=== PATIENT | male | born 1945 | race Caucasian/White ===

== ENCOUNTER 2018-01-22 05:58 | Day surgery (SDC) | payer OTHER ==
--- OUTSIDE RECORDS SUMMARY | 2018-01-22 07:20 | XMS REPORT ---
:1945 Author Organization eClinicalWorks Care Team Providers Name Role Phone Asif Lawrence Provider Role Unavailable Allergies, Adverse Reactions, Alerts Substance Reaction Event Type N.K.D.A. Info Not Available Non Drug Allergy Problems Problem Type Condition Code Onset Dates Condition Status Problem Primary osteoarthritis of left knee M17.12 Active Problem Pain, joint, knee, left M25.562 Active Assessment Pain, joint, knee, left M25.562 Active Assessment Primary osteoarthritis of left knee M17.12 Active Medications Medication Code Code Instructions Start End Status Dosage System Date Date Levothyroxine [facility] 10109728010 112 MCG Oral Active TK 1 T PO Sodium QD Simvastatin [facility] 67359619177 40 MG Oral Active TK 1 T PO QD Citalopram [facility] 41539908064 20 MG Oral Active TK 1 T PO Hydrobromide QAM Hydrocodone-Aceta [facility] 86968608164 7.5-325 MG Oral Active (Schedule minophen II Drug) TAKE 1 TABLET BY MOUTH 3 TIMES DAILY MAY MAKE DROWSY Results No Known Results Summary Purpose eClinicalWorks Submission
--- OUTSIDE RECORDS SUMMARY | 2018-01-22 07:20 | XMS REPORT ---
:1945 Author Organization [employer]ClinicalWorks Care Team Providers Name Role Phone Asif Lawrence Provider Role Unavailable Allergies, Adverse Reactions, Alerts Substance Reaction Event Type N.K.D.A. Info Not Available Non Drug Allergy Problems Problem Type Condition Code Onset Dates Condition Status Problem Pain, joint, knee, left M25.562 Active Problem Primary osteoarthritis of left knee M17.12 Active Problem Left sided sciatica M54.32 Active Assessment Pain, joint, knee, left M25.562 Active Assessment Left sided sciatica M54.32 Active Assessment Primary osteoarthritis of left knee M17.12 Active Medications Medication Code Code Instructions Start End Status Dosage System Date Date Levothyroxine [facility] 97224044424 112 MCG Oral Active TK 1 T PO Sodium QD Simvastatin [facility] 60622601142 40 MG Oral Active TK 1 T PO QD Hydrocodone-Aceta [facility] 64879592295 7.5-325 MG Oral Active (Schedule minophen II Drug) TAKE 1 TABLET BY MOUTH 3 TIMES DAILY MAY MAKE DROWSY Citalopram [facility] 45192300855 20 MG Oral Active TK 1 T PO Hydrobromide QAM Results No Known Results Summary Purpose eClinicalWorks Submission
--- OUTSIDE RECORDS SUMMARY | 2018-01-22 07:20 | XMS REPORT ---
[...] Primary osteoarthritis of left knee M17.12 Active Assessment Pain, joint, knee, left M25.562 Active Medications Medication Code Code Instructions Start End Status Dosage System Date Date Levothyroxine [facility] 32007897394 112 MCG Oral Active TK 1 T PO Sodium QD Hydrocodone-Aceta [facility] 32619701250 7.5-325 MG Oral Active (Schedule minophen II Drug) TAKE 1 TABLET BY MOUTH 3 TIMES DAILY MAY MAKE DROWSY Citalopram [facility] 33997110329 20 MG Oral Active TK 1 T PO Hydrobromide QAM Simvastatin [place] 81071771390 40 MG Oral Active TK 1 T PO QD Results No Known Results Summary Purpose eClinicalWorks Submission
--- OUTSIDE RECORDS SUMMARY | 2018-01-22 07:20 | XMS REPORT ---
[...] Start End Status Dosage System Date Date Citalopram [facility] 32875176648 20 MG Oral Active TK 1 T PO Hydrobromide QAM Simvastatin ND 31435150717 40 MG Oral Active TK 1 T PO QD Hydrocodone-Aceta [facility] 19322666975 7.5-325 MG Oral Active (Schedule minophen II Drug) TAKE 1 TABLET BY MOUTH 3 TIMES DAILY MAY MAKE DROWSY Levothyroxine [facility] 83585763259 112 MCG Oral Active TK 1 T PO Sodium QD Results No Known Results Summary Purpose eClinicalWorks Submission
[2018-01-22 07:27] VITALS: BP 126/68; TEMP 97.9; O2SAT 99
[2018-01-22] MEDS ORDERED: Ringers Lactate 1,000 ML IV ONE (07:32)
--- OUTSIDE RECORDS SUMMARY | 2018-01-25 09:20 | XMS REPORT ---
[...] End Status Dosage System Date Date Levothyroxine [facility] 57433358344 112 MCG Oral Active TK 1 T PO Sodium QD Simvastatin [facility] 10037521794 40 MG Oral Active TK 1 T PO QD Citalopram [facility] 21643741231 20 MG Oral Active TK 1 T PO Hydrobromide QAM Hydrocodone-Aceta [facility] 25408434964 7.5-325 MG Oral Active (Schedule minophen II Drug) TAKE 1 TABLET BY MOUTH 3 TIMES DAILY MAY MAKE DROWSY Results No Known Results Summary Purpose eClinicalWorks Submission
--- OUTSIDE RECORDS SUMMARY | 2018-01-25 09:20 | XMS REPORT ---
[...] End Status Dosage System Date Date Citalopram [facility] 79050366312 20 MG Oral Active TK 1 T PO Hydrobromide QAM Simvastatin ND 27178034554 40 MG Oral Active TK 1 T PO QD Hydrocodone-Aceta [facility] 10773830610 7.5-325 MG Oral Active (Schedule minophen II Drug) TAKE 1 TABLET BY MOUTH 3 TIMES DAILY MAY MAKE DROWSY Levothyroxine [facility] 33283111214 112 MCG Oral Active TK 1 T PO Sodium QD Results No Known Results Summary Purpose eClinicalWorks Submission
--- OUTSIDE RECORDS SUMMARY | 2018-01-25 09:20 | XMS REPORT ---
[...] End Status Dosage System Date Date Levothyroxine [facility] 36653106589 112 MCG Oral Active TK 1 T PO Sodium QD Hydrocodone-Aceta [facility] 03544131871 7.5-325 MG Oral Active (Schedule minophen II Drug) TAKE 1 TABLET BY MOUTH 3 TIMES DAILY MAY MAKE DROWSY Citalopram [facility] 84710546365 20 MG Oral Active TK 1 T PO Hydrobromide QAM Simvastatin ND 91169988748 40 MG Oral Active TK 1 T PO QD Results No Known Results Summary Purpose eClinicalWorks Submission
--- OUTSIDE RECORDS SUMMARY | 2018-01-25 09:20 | XMS REPORT ---
[...] End Status Dosage System Date Date Levothyroxine [facility] 46988446580 112 MCG Oral Active TK 1 T PO Sodium QD Simvastatin [facility] 92429750978 40 MG Oral Active TK 1 T PO QD Hydrocodone-Aceta [facility] 02742272348 7.5-325 MG Oral Active (Schedule minophen II Drug) TAKE 1 TABLET BY MOUTH 3 TIMES DAILY MAY MAKE DROWSY Citalopram [facility] 76724981171 20 MG Oral Active TK 1 T PO Hydrobromide QAM Results No Known Results Summary Purpose eClinicalWorks Submission
--- OUTSIDE RECORDS SUMMARY | 2018-01-25 10:32 | XMS REPORT ---
[...] Date Date Levothyroxine [facility] 56026871036 112 MCG Oral Active TK 1 T PO Sodium QD Simvastatin [facility] 64932271481 40 MG Oral Active TK 1 T PO QD Citalopram [facility] 39715511691 20 MG Oral Active TK 1 T PO Hydrobromide QAM Hydrocodone-Aceta [facility] 08181285781 7.5-325 MG Oral Active (Schedule minophen II Drug) TAKE 1 TABLET BY MOUTH 3 TIMES DAILY MAY MAKE DROWSY Results No Known Results Summary Purpose eClinicalWorks Submission
--- OUTSIDE RECORDS SUMMARY | 2018-01-25 10:32 | XMS REPORT ---
[...] End Status Dosage System Date Date Levothyroxine [facility] 04116365184 112 MCG Oral Active TK 1 T PO Sodium QD Simvastatin [facility] 36168420275 40 MG Oral Active TK 1 T PO QD Hydrocodone-Aceta [facility] 75008556937 7.5-325 MG Oral Active (Schedule minophen II Drug) TAKE 1 TABLET BY MOUTH 3 TIMES DAILY MAY MAKE DROWSY Citalopram [facility] 57907936117 20 MG Oral Active TK 1 T PO Hydrobromide QAM Results No Known Results Summary Purpose eClinicalWorks Submission
--- OUTSIDE RECORDS SUMMARY | 2018-01-25 10:32 | XMS REPORT ---
[...] End Status Dosage System Date Date Levothyroxine [facility] 95834944917 112 MCG Oral Active TK 1 T PO Sodium QD Hydrocodone-Aceta [facility] 77310711131 7.5-325 MG Oral Active (Schedule minophen II Drug) TAKE 1 TABLET BY MOUTH 3 TIMES DAILY MAY MAKE DROWSY Citalopram [facility] 94056660579 20 MG Oral Active TK 1 T PO Hydrobromide QAM Simvastatin ND 20548201100 40 MG Oral Active TK 1 T PO QD Results No Known Results Summary Purpose eClinicalWorks Submission
--- OUTSIDE RECORDS SUMMARY | 2018-01-25 10:32 | XMS REPORT ---
[...] End Status Dosage System Date Date Citalopram [facility] 64174110233 20 MG Oral Active TK 1 T PO Hydrobromide QAM Simvastatin ND 75790000213 40 MG Oral Active TK 1 T PO QD Hydrocodone-Aceta [facility] 21422290184 7.5-325 MG Oral Active (Schedule minophen II Drug) TAKE 1 TABLET BY MOUTH 3 TIMES DAILY MAY MAKE DROWSY Levothyroxine [facility] 61847241324 112 MCG Oral Active TK 1 T PO Sodium QD Results No Known Results Summary Purpose eClinicalWorks Submission
== END 2018-01-22 07:59 | disposition home or self-care (01) ==
LOC: DSO 05:58 → DS 05:58 → UNDOADMIN 05:58 → DS 07:59 → UNDODISIN 07:59
PROVIDERS: ATTEND Orthopaedic Surgery
DX: M17.12 Unilateral primary osteoarthritis, left knee (principal); Z53.09 Procedure and treatment not carried out because of other contraindication; S81.052A Open bite, left knee, initial encounter; W54.0XXA Bitten by dog, initial encounter; M54.32 Sciatica, left side; I25.10 Atherosclerotic heart disease of native coronary artery without angina pectoris; I25.2 Old myocardial infarction; I10 Essential (primary) hypertension; E78.5 Hyperlipidemia, unspecified; F17.210 Nicotine dependence, cigarettes, uncomplicated; Z79.82 Long term (current) use of aspirin; Z79.899 Other long term (current) drug therapy; Z95.1 Presence of aortocoronary bypass graft

== ENCOUNTER 2018-03-19 05:53 | Inpatient (IN) | payer OTHER ==
[2018-03-13 10:06] LABS: Absolute Lymphocytes (CBC) 2.5 K/uL (0.7-4.9); Absolute Monocytes 0.8 K/uL (0.1-1.3); Absolute Neutrophil 5.9 K/uL (1.8-8.0); Basophils % 0.3 % (0-1.3); Eosinophils % 1.1 % (0-4.4); Hematocrit 41.9 % (39.6-49.0); Lymphocytes % 26.5 % (15.3-44.8); MPV 9.9 fL (7.6-11.3); Monocytes % 8.8 % (3.3-12.3); RBC Red Blood Cell Count 4.95 M/uL (4.33-5.43)
[2018-03-13 10:14] LABS: Protime INR 0.89
[2018-03-13 10:33] LABS: Potassium 4.1 mmol/L (3.5-5.1)
[2018-03-13 10:36] LABS: Albumin 3.8 g/dL (3.4-5.0); Bilirubin Direct 0.2 mg/dL (0-0.2); Bilirubin Total 0.5 mg/dL (0.2-1.0); Protein, Total 7.1 g/dL (6.4-8.2)
[2018-03-13 10:40] LABS: Urine Appearance CLEAR; Urine Bilirubin NEGATIVE (NEG); Urine Blood NEGATIVE (NEG); Urine Color YELLOW; Urine Glucose NEGATIVE (NEG); Urine Protein NEGATIVE (NEG); Urine Specific Gravity <=1.005 (1.005-1.030); Urine Urobilinogen 0.2 mg/dL (0.2-1.0); Urine pH 6.5 (5.0-7.0)
[2018-03-13 11:07] LABS: Urine Microscopic Reflex ORDER UMIC
[2018-03-13 12:03] LABS: Urine Bacteria <20 /HPF (NONE SEEN); Urine Culture Reflex Order REFLEXED; Urine RBC <5 /HPF (NONE SEEN)
--- OUTSIDE RECORDS SUMMARY | 2018-03-19 05:56 | XMS REPORT ---
[...] End Status Dosage System Date Date Levothyroxine [facility] 26017186832 112 MCG Oral Active TK 1 T PO Sodium QD Simvastatin [facility] 97025567836 40 MG Oral Active TK 1 T PO QD Citalopram [facility] 54113806730 20 MG Oral Active TK 1 T PO Hydrobromide QAM Hydrocodone-Aceta [facility] 46895103601 7.5-325 MG Oral Active (Schedule minophen II Drug) TAKE 1 TABLET BY MOUTH 3 TIMES DAILY MAY MAKE DROWSY Results No Known Results Summary Purpose eClinicalWorks Submission
--- OUTSIDE RECORDS SUMMARY | 2018-03-19 05:56 | XMS REPORT ---
[...] End Status Dosage System Date Date Levothyroxine [facility] 16719497446 112 MCG Oral Active TK 1 T PO Sodium QD Hydrocodone-Aceta [facility] 74177741355 7.5-325 MG Oral Active (Schedule minophen II Drug) TAKE 1 TABLET BY MOUTH 3 TIMES DAILY MAY MAKE DROWSY Citalopram [facility] 56039313655 20 MG Oral Active TK 1 T PO Hydrobromide QAM Simvastatin ND 00334491899 40 MG Oral Active TK 1 T PO QD Results No Known Results Summary Purpose eClinicalWorks Submission
--- OUTSIDE RECORDS SUMMARY | 2018-03-19 05:56 | XMS REPORT ---
[...] End Status Dosage System Date Date Citalopram [facility] 42449765146 20 MG Oral Active TK 1 T PO Hydrobromide QAM Simvastatin ND 19056532597 40 MG Oral Active TK 1 T PO QD Hydrocodone-Aceta [facility] 87549545982 7.5-325 MG Oral Active (Schedule minophen II Drug) TAKE 1 TABLET BY MOUTH 3 TIMES DAILY MAY MAKE DROWSY Levothyroxine [facility] 31058876695 112 MCG Oral Active TK 1 T PO Sodium QD Results No Known Results Summary Purpose eClinicalWorks Submission
--- OUTSIDE RECORDS SUMMARY | 2018-03-19 05:57 | XMS REPORT ---
[...] End Status Dosage System Date Date Levothyroxine [facility] 30767983665 112 MCG Oral Active TK 1 T PO Sodium QD Hydrocodone-Aceta [facility] 04703780089 7.5-325 MG Oral Active (Schedule minophen II Drug) TAKE 1 TABLET BY MOUTH 3 TIMES DAILY MAY MAKE DROWSY Simvastatin [facility] 21788986679 40 MG Oral Active TK 1 T PO QD Citalopram [facility] 26080489737 20 MG Oral Active TK 1 T PO Hydrobromide QAM Results No Known Results Summary Purpose eClinicalWorks Submission
--- OUTSIDE RECORDS SUMMARY | 2018-03-19 05:57 | XMS REPORT ---
[...] End Status Dosage System Date Date Levothyroxine [facility] 12807927835 112 MCG Oral Active TK 1 T PO Sodium QD Simvastatin [facility] 23602699198 40 MG Oral Active TK 1 T PO QD Hydrocodone-Aceta [facility] 78974765674 7.5-325 MG Oral Active (Schedule minophen II Drug) TAKE 1 TABLET BY MOUTH 3 TIMES DAILY MAY MAKE DROWSY Citalopram [facility] 18567101713 20 MG Oral Active TK 1 T PO Hydrobromide QAM Results No Known Results Summary Purpose eClinicalWorks Submission
[2018-03-19] MEDS ORDERED: Ringers Lactate 1,000 ML IV ONE ×2 (06:07→09:40)
[2018-03-19] MEDS ORDERED: LIDOCAINE 1% MPF 5 ML VIAL ONE (06:08)
[2018-03-19] MEDS ORDERED: PROPOFOL 200 MG/20 ML VIAL IV ONE (06:52)
[2018-03-19] MEDS ORDERED: GLYCOPYRROLATE 0.2 MG/ML SYR ONE ×2 (06:53)
[2018-03-19] MEDS ORDERED: MIDAZOLAM HCL 2 MG/2 ML INJ ONE ×2 (06:53→11:58)
[2018-03-19] MEDS ORDERED: LIDOCAINE 2% MPF 5 ML VIAL ONE (06:54)
[2018-03-19] MEDS ORDERED: FENTANYL CITR 250 MCG/5 ML ONE (06:55)
[2018-03-19] MEDS ORDERED: ROCURONIUM 50 MG/5 ML VIAL IV ONE (06:55)
[2018-03-19] MEDS ORDERED: ONDANSETRON 4 MG/2 ML VIAL ONE (06:56)
[2018-03-19] MEDS ORDERED: NEOSTIGMINE 1 MG/ML -10 ML VIAL ONE (06:56)
[2018-03-19] MEDS ORDERED: DEXAMETHASONE 4 MG/ML VIAL ONE (06:58)
[2018-03-19] MEDS ORDERED: ROPLVACAINE HCL 40 ML ONE (07:00)
[2018-03-19] MEDS ORDERED: NA CHLORIDE 0.9% 500 ML ONE (07:12)
[2018-03-19] MEDS: BUPIVACA 0.25%/EPI 0.0005% MDV 50 ML VIAL ONE ×3 (07:14→10:50)
[2018-03-19] MEDS: TRANEXAMIC ACID 1,000 MG in NA CHLORIDE 0.9% 50 ML IV ONE ×4 (07:16→07:50)
[2018-03-19] MEDS: CEFAZOLIN 1GM (PREMIX IV) 1 GM/50 ML BAG ONE ×2 (07:32→07:41)
[2018-03-19] MEDS ORDERED: FENTANYL CITR 100 MCG/2 ML ONE (09:58)
[2018-03-19] MEDS: MEPERIDINE HCL 25 MG/0.5 ML ONE ×2 (11:13→11:17)
--- NOTE | 2018-03-19 11:21 | P.BOP ---
Preoperative diagnosis: PRIMARY OSTEOARTHRITIS LEFT KNEE Postoperative diagnosis: SAME Primary procedure: LEFT KNEE TOTAL KNEE ARTHROPLASTY w/COMPUTER NAVIGATION Development Professional: Ly Ortiz (GAVE NECESSARY 1ST ASSIST SERVICES THROUGHOUT CASE) Estimated blood loss: 50mL Specimen: SHARDS OF BONE AND SOFT TISSUES DEBRIDED Findings: EBURNATED [facility] Anesthesia: General Complications: None Implants: SIGMAFEMUR [id number];TIBIAL TRAY RP5;[id number];FXFGTC0n22.5mm Fluids & blood products: DARIEN CEMENT 2 BATCHES HVw/GENT; INJ. 30 mL 0.25% MARCAINEw/EPI Transferred to: Recovery Room Condition: Good
[2018-03-19] MEDS: HYDROMORPHONE HCL 1 MG/ML INJ ONE ×2 (11:22→11:27)
[2018-03-19] MEDS ORDERED: HYDROMORPHONE HCL 1 MG/ML INJ ONE (11:44)
[2018-03-19] MEDS ORDERED: ROPLVACAINE HCL 20 ML ONE (11:49)
[2018-03-19] MEDS ORDERED: DOCUSATE NA 100 MG CAP PO PRN (12:03)
[2018-03-19] MEDS ORDERED: MORPHINE 2 MG/ML SYR IV PRN (12:03)
[2018-03-19] MEDS ORDERED: ONDANSETRON 4 MG/2 ML VIAL IV PRN (12:03)
--- NOTE | 2018-03-19 12:35 | RAD REPORT ---
EXAM DESCRIPTION: RAD - Knee Left 2 View - 03/19/2018 12:25 pm CLINICAL HISTORY: Post Op LEFT TOTAL KNEE ARTHROPLASTY COMPARISON: No comparisons FINDINGS: A left total knee arthroplasty has been performed. Hardware is in expected positioning and alignment. Small amount of air is present in the joint space. Anterior skin toney noted.
[2018-03-19 12:50] LABS: Hematocrit 37.8 % (39.6-49.0)
[2018-03-19] MEDS: CEFAZOLIN/SWI 1gm 1 GM/10 ML SYR IV SCH (17:00)
[2018-03-19 17:27] VITALS: BMI 25.1
[2018-03-20] MEDS: CEFAZOLIN/SWI 1gm 1 GM/10 ML SYR IV SCH (00:24)
[2018-03-20] MEDS: HYDROCODONE/APAP 7.5/325 MG TAB PO PRN ×4 (00:24→17:50)
--- NOTE | 2018-03-20 02:46 | OP ---
Date of Procedure: 03/19/2018 Surgeon: Asif Lawrence MD Cosmetic Consultant: SACHA Serrato, who gave very necessary first officer and flight instructor services throughout the case. Preoperative Diagnosis: Primary osteoarthritis, left knee. Postoperative Diagnosis: Primary osteoarthritis, left knee. Primary Procedure: Left total knee arthroplasty with computer navigation. Indications: This 72-year-old male has had persistent complaints with his left knee that had an open meniscectomy procedure done 50 years ago. The patient has htax-lw-rwiz arthritis and difficulty wit h ambulation. He walks with a significant limp. He has elected to proceed with total knee arthropla sty. Technique: The patient was taken to the holding area, where he was given a sciatic nerve and femoral nerve block. He was then taken to the operating room, where he was given a general anesthetic after being moved to the operative table. A bolster was placed under the left hip and rest was put on the surgical table to position the knee at 90 degrees knee flexion. The tourniquet was placed in the pr oximal thigh. Prepping and draping were carried out with Betadine scrub and Betadine solution going from the tourniquet to the ankle. The ankle was prepped with a DuraPrep stick. Then, an impervious stockinette was placed on the lower extremity penitent[facility] to the knee and secured with Coban wrap. The E smarch bandage was utilized to exsanguinate the limb and the tourniquet was raised to 250 mmHg. The knee was marked for the incision. An Ioban sticky drape was placed around the exposed area of skin a isadora and below the knee. The incision was made longitudinally beginning just medial to the tibial tu bercle and extending across the midportion of the patella and approximately 4-5 cm from the superior patellar pole more proximally. The incision was carried sharply through skin and subcutaneous tissue . Then, a medial parapatellar incision was made. The patella was everted and measured at 24 mm in t hickness. A 38 mm diameter prosthetic patella was chosen as the right size and the cutting jig was a djusted for the appropriate 9-mm cut. The chondral surface was excised with oscillating saw. PEG ho les were drilled and the prosthetic trial patella was put in position and again the measurement of th ickness was 24 mm. The prosthetic patellar trial was removed and a metal ricardo was put in its place. Sharp debridement was carried out for the anterior knee and then 2 threaded pins 3 mm in diameter we re placed proximally within the incision on the medial side of the distal femoral cortex. These pins were used to anchor the femoral array. Two punctures were made on the medial side of the tibia clos e to its midportion and two 3 mm threaded pins were placed in parallel fashion to act as the anchor f or the tibial array. Registration was carried out first with circumduction to ascertain the center o f rotation of the left femoral head. Then, registration was carried out in sequence for the femur an d the tibia. These registrations were verified and the knee produced a solution with for size 5 tibi a and size 5 femur. The solution was accepted and the tibial cutting guide was navigated into positi on and secured. That tibial cut was made with the wafer of worn bone removed. This was verified wit h the flat-footed array and recorded. The tensionometer was put in place. It took several efforts a t lengthening the medial collateral ligament to get acceptable numbers for proceeding. Once distal r elease of the proximal attachment of the MCL was accomplished and some relief of the more distal port ion of the tendon, the bone spurs were removed from around the tibial margin and the femoral margin w ith closed attention to the area under the medial collateral ligament. Then, the cutting guide for t he distal femur was navigated into position. That cut was made and verified and recorded. The 4-in- 1 cutting guide was navigated in position and the anterior cut was made followed by the posterior cut and the anterior chamfer and the posterior chamfer. The 10-mm blocks were used to verify alignment of the mechanical weightbearing line plugging into the second metatarsal distally and towards the hip ball proximally. The box feeder was placed in position and secured. That cut was made. The femora l trial was a nice fit. The tibial tray then selected was the size 5 and the size 5 tray was secured in position with the bullet pins followed by reaming and tapping in the keel piece. A 10-mm insert was used and a trial reduction showed excellent alignment and stability was good except for anterior drawer. A 12.5-mm insert was used and the knee was much more stable for the anterior drawer effort. All trial components were removed and the knee was irrigated with Simpulse lavage followed by drying . Drill holes were made for penetration of cement in the tibial plateau and the distal cut surface o f the femur. Two batches of Clute HV cement were mixed in a cement gun. This was cement with gent amicin. Injection technique was carried out and the tibial tray RP size 5 was tapped into position w ith excess cement curetted away. The Sigma femur PS size 4 left was tapped into position and held as excess cement was curetted away for the distal femoral insertion. The remaining cement was injected into the cut surface of the patella and the 38 mm diameter oval dome component was pressed into posi tion and clamped. The cement was allowed 18 minutes to set completely and then the trial inserts wer e again tested using the 10 and the 12.5-mm inserts. The 12.5 was the selection and the component wa s opened and inserted in the knee. Then, the knee was irrigated and closed with #1 Vicryl for the fa scial layer, closing along the incision through the capsule in the medial parapatellar approach. Radha p subcu closure was also with interrupted #1 Vicryl. A 2-0 Vicryl was used to close the superficial subcutaneous layer. Skin toney were utilized. The Aquamantys had been used prior to release of th e tourniquet. The tourniquet had been released at 2 hours and 6 minutes. Estimated blood loss was 5 0 mL. The incision was injected with 30 mL of 0.25% Marcaine with epinephrine. An Aquacel bandage w as applied after skin closure with toney. The Aquacel bandage was reinforced with soft roll and an Bertin wrap to help it maintain adhesion and seal off the incision. The patient was then taken to the recovery room having tolerated this procedure well. There was a time-out with all personnel in the r oom prior to starting the surgery. All pertinent facts were discussed and it was agreed to proceed. JAMEY/BHAVIN Voice ID: [id number] Report ID: [id number]
[2018-03-20] MEDS: ENOXAPARIN 30 MG/0.3 ML SQ SCH ×2 (05:19→17:36)
[2018-03-20 06:24] LABS: Hematocrit 35.4 % (39.6-49.0)
[2018-03-20] MEDS: NIACIN 500 MG SR TAB PO SCH (08:48)
[2018-03-20] MEDS: VITAMIN D 1000 UNIT TAB PO SCH (08:49)
[2018-03-20] MEDS: TAMSULOSIN 0.4 MG SR CAP PO SCH (08:49)
[2018-03-20] MEDS ORDERED: CELECOXIB 100 MG CAPSULE PO SCH (09:00)
[2018-03-20] MEDS ORDERED: SIMETHICONE 125 MG TAB PO PRN (12:22)
[2018-03-20 16:21] LABS: Urine Appearance CLEAR; Urine Bilirubin NEGATIVE (NEG); Urine Blood NEGATIVE (NEG); Urine Color YELLOW; Urine Glucose NEGATIVE (NEG); Urine Protein NEGATIVE (NEG); Urine Urobilinogen 0.2 mg/dL (0.2-1.0)
[2018-03-20 16:34] LABS: Urine Microscopic Reflex NO UMIC
--- NOTE | 2018-03-20 18:46 | P.PN ---
Date of Service: 03/20/18 (POD#1) S: PATIENT IS ALERT ORIENTED AND AFFABLE RECLINING IN BED WITH CPM RUNNING AT 0 -65*. HE DENIES MAJOR DISCOMFORT AND HAS TAKEN NORCO 15MG/650 APAP ONLY TWICE SINCE SURGERY. HE IS NOT NEEDING/USING MORPHINE AVAILABLE IV. O: AFEBRILE, VSS, PAIN CHART 5,5,0,5,5,& 0/10. HGB POST-OP 12.7, 11.5 THIS AM. BANDAGE CLEAN, DRY & INTACT. NV EXAM INTACT, X-RAYS SHOW EXCELLENT ALIGNMENT OF PROSTHETIC COMPONENTS OF TKA. PATIENT WENT 100', 100', & 70' WITH FWW THIS AM. WENT 140'.& 130'WITH RW THIS AFTERNOON. CPM 70* AFTER 2ND PT SESSION, ~90* OBSERVED. A: EXCELLENT PROGRESS 1ST POD LEFT TKA. PATIENT STARTED ON LOVENOX 30 mg SQ Q 12HRS FOR DVT PROPHYLAXIS. INSTRUCTED TO RESTART ASA 81 MG DOSE DAY AFTER SURGERY IN CARDIOLOGY CLEARANCE LETTER. P: CONTINUES MOBILIZATION TOLERATED.
[2018-03-20] MEDS: AMOX/K CLAV 500 MG TAB PO SCH (20:49)
[2018-03-20] MEDS ORDERED: ATORVASTATIN 20 MG TAB PO SCH (21:00)
[2018-03-20 22:53] VITALS: O2SAT 97
--- NOTE | 2018-03-20 23:54 | CON ---
History Of Present Illness: The patient is a 72-year-old male who has just had left total knee repla cement by Dr. Lawrence. I was asked to see the patient to care for his chronic medical illnesses after his surgery. The patient feels well. He said that his urine output was a little bit slow. He had some suprapubic discomfort. Other than that, he feels well. Review of Systems: Genitourinary: As above. Cardiovascular: No complaints. Skeletomuscular: No complaint. Neurological: No complaint. Gastrointestinal: No complaint. Respiratory: No complaint. Past Medical History: 1.Hypothyroidism. 2.Coronary artery disease. 3.Mixed anxiety and depression. 4.Osteoarthritis with more involvement in the knees. 5.COPD. Family History: Noncontributory. Social History: The patient still smokes about a half to one pack a day. No alcohol or drug abuse h istory. Medications: He is on aspirin 81 mg daily, vitamin D3, niacin 500 daily, simvastatin 40 mg daily, Fl omax 0.4 mg p.o. daily. He is on citalopram 20 mg p.o. daily and dose of levothyroxine not verified yet. Allergies: NO KNOWN DRUG ALLERGIES. Physical Examination: Vital Signs: Blood pressure 135/65, pulse 60, temperature 97.9. Heart: Regular rate and rhythm. Chest: Mild end-expiratory wheezing. Abdomen: Soft, nontender. No hepatosplenomegaly. Bowel sounds for normoactive. No suprapubic tende rness or rebound. Neurological: Alert and oriented. Nonfocal. Grossly intact. Extremities: No edema. No cyanosis. Peripheral pulses are felt. Diagnostic Studies: The patient's hemoglobin is at 11.5, hematocrit 35.4 today postoperatively. His admission labs have been noted. The patient on admission had white cell count in his urine of 10-20 with esterase positive. Assessment/plan: 1.Chronic medical illnesses as illustrated above including coronary artery disease, chronic obstruct kali pulmonary disease, hypothyroidism, hyperlipidemia, and benign prostatic hypertrophy. We will con tinue the patient on his home medications. We will order for him his albuterol since he does not hav e it here, 2 puffs q.i.d. and I have instructed the patient to encourage to use the spirometer. 2.Suprapubic discomfort in a patient with benign prostatic hyperplasia and on Flomax and evidence of urinary tract infection on admission. The patient is not on antibiotics. We will go ahead and put him on Augmentin 500 mg p.o. b.i.d. and we will send urine for culture. 3.The patient thought that he is having also some more gases because he is not moving around as much . We will put him on simethicone. Thank you for your consult. We will follow up the case with you. SALVADOR/BHAVIN Voice ID: [id number] Report ID: [id number]
[2018-03-21] MEDS: HYDROCODONE/APAP 7.5/325 MG TAB PO PRN ×3 (01:50→13:34)
[2018-03-21] MEDS: ENOXAPARIN 30 MG/0.3 ML SQ SCH ×2 (05:57→17:08)
[2018-03-21 06:53] LABS: Absolute Lymphocytes (CBC) 2.3 K/uL (0.7-4.9); Absolute Neutrophil 4.3 K/uL (1.8-8.0); Basophils % 0.4 % (0-1.3); Hematocrit 30.5 % (39.6-49.0); Lymphocytes % 29.4 % (15.3-44.8); MPV 9.3 fL (7.6-11.3); Monocytes % 13.1 % (3.3-12.3); RBC Red Blood Cell Count 3.61 M/uL (4.33-5.43)
[2018-03-21 07:03] LABS: Magnesium 1.9 mg/dL (1.8-2.4); Potassium 4.1 mmol/L (3.5-5.1)
[2018-03-21] MEDS: AMOX/K CLAV 500 MG TAB PO SCH (08:40)
[2018-03-21] MEDS: NIACIN 500 MG SR TAB PO SCH (08:40)
[2018-03-21] MEDS: TAMSULOSIN 0.4 MG SR CAP PO SCH (08:41)
[2018-03-21] MEDS: VITAMIN D 1000 UNIT TAB PO SCH (08:41)
[2018-03-21] MEDS ORDERED: ASPIRIN EC 81 MG TAB PO SCH (09:00)
[2018-03-21] MEDS ORDERED: CITALOPRAM 10 MG TABLET PO SCH (09:00)
[2018-03-21] MEDS ORDERED: ALBUTEROL INHALER 60 PUFF/8 GM IH PRN (12:05)
[2018-03-21 16:39] VITALS: BP 136/61; TEMP 99
--- NOTE | 2018-03-21 17:37 | PN ---
Subjective: The patient is doing well. Has no complaints. Objective: Vital Signs: Blood pressure 125/75, pulse 90, temperature 97.6. Heart: Regular rate and rhythm. Chest: Clear to auscultation. Abdomen: Soft, benign. Neurological: Alert, oriented. Grossly intact. Diagnostic Studies: Urine culture, no growth till now. CBC and chemistry noted. Assessment/plan: The patient is clinically stable postoperatively and also for the urinary tract inf ection. We will continue him on Augmentin. Look orders for details. MFS/MODL Voice ID: [id number] Report ID: [id number]
== END 2018-03-21 17:50 | disposition home health service (06) | DRG 470 ==
LOC: OR 05:53 → OBSVTOIN 14:11 → 2ND 14:11
PROVIDERS: ADMIT Orthopaedic Surgery; ATTEND Orthopaedic Surgery
PROC: 0SRD0J9 Replacement of Left Knee Joint with Synthetic Substitute, Cemented, Open Approach (ICD-10-PCS; principal; 2018-03-19 07:30)
DX: M17.12 Unilateral primary osteoarthritis, left knee (principal); N39.0 Urinary tract infection, site not specified; I25.10 Atherosclerotic heart disease of native coronary artery without angina pectoris; Z95.5 Presence of coronary angioplasty implant and graft; I25.2 Old myocardial infarction; F17.210 Nicotine dependence, cigarettes, uncomplicated; M54.32 Sciatica, left side; I10 Essential (primary) hypertension; E03.9 Hypothyroidism, unspecified; J44.9 Chronic obstructive pulmonary disease, unspecified; F41.9 Anxiety disorder, unspecified; F32.9 Major depressive disorder, single episode, unspecified; N40.0 Benign prostatic hyperplasia without lower urinary tract symptoms
CPT/HCPCS: 36415; 80048; 80076; 81003; 81015; 83036; 83735; 85014; 85018; 85025; 85610; 85730; 86850; 86900; 86901; 87086; 87088; 88304; 88311; 97116; 97139; 97163; 97530; J0690; J1170; J1650; J2175; J2250; J2270; J2405; J2704; J2710; J2795; J3010

== ENCOUNTER 2022-01-15 14:46 | Emergency (ER) | payer OTHER ==
--- OUTSIDE RECORDS SUMMARY | 2022-01-15 14:49 | XMS REPORT | Continuity of Care Document ---
:1945 Author Organization [facility] t Address [address] [place] [address] Care Team Providers Name Role Phone Miller_S_TITO Attending Clinician Unavailable Corinneo_A_AH Attending Clinician Unavailable Miller_S_AH Admitting Clinician Unavailable Kaycee-Mbayo_A_AH Admitting Clinician Unavailable Payers Payer Name Policy Type Policy Number Effective Date Expiration Date S our [facility] [place] - [id number] 2019 [employer] 00:00:00 (MEDICARE REPLACEMENT/ADVANT AGE - HMO) Problems Condition Condition Condition Status Onset Resolution Last Treating Co mments Source Name Details Category Date Date Treatment Clinician Date Senile Senile Problem Active [place] purpura Purpura 2-10 Family 00:00: Practic 00 e Mild major Mild Major Problem Active V ill[place] depression Depression 1-04 Fa skye , single , Single 00:00: Practi c episode Episode 00 e Essential Essential Problem Active Raya reji hypertensi Hypertensi 4 skye on on 00:00: Practic 00 e Hypothyroi Hypothyroi Problem Active [place] dism dism 4- Family 00:00: Practic 00 e Hyperlipid Hyperlipid Problem Active [place] emia emia - Family 00:00: Practic 00 e Chronic Chronic Problem Active [place] obstructiv Obstructiv 05-13 Fa skye e lung e Lung 00:00: Practic disease Disease 00 e Benign Benign Problem Active [place] prostatic Prostatic 4 Fami ly hyperplasi Hyperplasi 00:00: Pr actic a a 00 e [id number] Left sided Problem Active Com mon sciatica [facility] - [facility] [id number] 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 [facility] [id number] Aftercare Problem Active Com mon following Spirit joint - [facility] replacemen [facility] [id number] Other Problem Active Common chronic Spirit pain - [facility] [id number] Pain, Problem Active Common joint, Spirit knee, left - [facility] [id number] Primary Problem Active Comm on osteoarthr Spirit itis of - [facility] left knee [facility] [id number] Pain in Problem Active Comm on [id number] joint of Spirit left - [facility] shoulder [facility] [id number] Radiculiti Problem Active Com mon s of left Spirit cervical - [facility] region [facility] Allergies, Adverse Reactions, Alerts This patient has no known allergies or adverse reactions. Social History Social Habit Start Date Stop Date Quantity Comments Source History of Tobacco Current Smoker Co mmon [facility] Use [facility] Sex Assigned At Com mon [facility] Smoking Status Start Date Stop Date Source Former Smoker Kari berg Current Smoker 2018-11-25 00:00:00 Common Spiri t - [facility] Medications Ordered Filled Start Stop Current Ordering Indication Dosage Frequency Signature Comments Components Source Medication Medication Date Date Medication? Clinician (SIG) Name Name Gabapentin Gabapentin 2018-02 Yes Asif 1 capsule Common 0-14 [place] Spirit 00:00: [facility] Gabapentin Gabapentin 2019- No 1{capsu QD Gabapentin 100 MG 100 MG 0-14 le} 100 MG 00:00: 00 Hyalgan 20 Hyalgan 20 2018-0 No 2mL C ommon mg mg 8 Spirit 00:00: [facility] Bupivicaine Bupivicaine 2018-0 No 5mL Common [place] 8-24 Spirit 00:00: [facility] Bupivicaine Bupivicaine 2018-0 No 5mL Common [place] 8- Spirit 00:00: [facility] Hyalgan 20 Hyalgan 20 2018-0 No 2mL C ommon mg mg 09-28 Spirit 00:00: - [facility] Bupivicaine Bupivicaine 2017-0 No 5mL Common [place] 8 Spirit 00:00: - [facility] Hyalgan 20 Hyalgan 20 2017-0 No 20mg C ommon mg mg 8 Spirit 00:00: - [facility] aspirin 81 aspirin 81 No 1 Q1D aspirin 81 Village mg mg mg Family tablet,shaye tablet,shaye tablet,del Practic yed release yed release ayed e Take 1 Take 1 release tablet tablet Take 1 every day every day tablet by oral by oral every day route with route with by oral meals. meals. route with meals. citalopram citalopram No 1 Q1D citalopram Village 20 mg 20 mg 20 mg Family tablet Take tablet Take tablet Practic 1 tablet 1 tablet Take 1 e every day every day tablet by oral by oral every day route. route. by oral route. Co Q-10 400 Co Q-10 400 No 1mg Q1D Co Q-10 Village mg capsule mg capsule 400 mg F amily Take 1 mg Take 1 mg capsule Pr actic every day every day Take 1 mg e by oral by oral every day route. route. by oral route. hydrochloro hydrochloro No 1 Q1D hydrochlor [facility] thiazide thiazide othiazide Fa skye 12.5 mg 12.5 mg 12.5 mg Practi c tablet Take tablet Take tablet e 1 tablet 1 tablet Take 1 every day every day tablet by oral by oral every day route. route. by oral route. lansoprazol lansoprazol No 1capsul Q1D lansoprazo [facility] e 30 mg e 30 mg e(s) le 30 mg Famil y capsule,del capsule,del capsule,de Practic ayed ayed layed e release release release Take 1 Take 1 Take 1 capsule capsule capsule every day every day every day by oral by oral by oral route. route. route. levothyroxi levothyroxi No 1capsul Q1D levothyrox [facility] ne 112 mcg ne 112 mcg e(s) ine 112 Family capsule capsule mcg Practic Take 1 Take 1 capsule e capsule capsule Take 1 every day every day capsule by oral by oral every day route. route. by oral route. olmesartan olmesartan No 1 Q1D olmesartan [facility] 20 mg 20 mg 20 mg Family tablet Take tablet Take tablet Practic 1 tablet 1 tablet Take 1 e every day every day tablet by oral by oral every day route. route. by oral route. tamsulosin tamsulosin No 1capsul Q1D tamsulosin [facility] 0.4 mg 0.4 mg e(s) 0.4 mg Family capsule capsule capsule Practi c Take 1 Take 1 Take 1 e capsule capsule capsule every day every day every day by oral by oral by oral route. route. route. albuterol albuterol No 2puff(s Q4H albuterol [facility] sulf 90 sulf 90 ) sulf 90 Family mcg/actuati mcg/actuati mcg/actuat Practic on breath on breath ion breath e activated activated activated powder powder powder inhaler,sen inhaler,sen inhaler,se sor Inhale sor Inhale nsor 2 puffs 2 puffs Inhale 2 every 4 every 4 puffs hours by hours by every 4 inhalation inhalation hours by route. route. inhalation route. amlodipine amlodipine No 1 Q1D amlodipine [facility] 10 mg 10 mg 10 mg Family tablet Take tablet Take tablet Practic 1 tablet 1 tablet Take 1 e every day every day tablet by oral by oral every day route. route. by oral route. Levothyroxi Levothyroxi Yes Asif TK 1 T PO Common ne Sodium ne Sodium Hoawrd QD Spi rit [facility] Simvastatin Simvastatin Yes Asif TK 1 T PO Common [place] QD [facility] Citalopram Citalopram Yes Asif TK 1 T PO Common Hydrobromid Hydrobromid [place] QAM [facility] e e - [facility] Aspir-81 Aspir-81 Yes Asif not Commo n [place] defined Spirit [facility] Aleve Aleve Yes Asif not Common [place] defined [facility] Meloxicam Meloxicam Yes Asif not Com mon Howard defined [facility] Amlodipine Amlodipine Yes Asif not C ommon Besylate Besylate Howard defined Sp deon [facility] Tramadol Tramadol Yes Asif not Commo n HCl HCl Howard defined [facility] Meloxicam Meloxicam No Meloxicam 7.5 MG 7.5 MG 7.5 MG Aspir-81 Aspir-81 No Aspir-81 Aleve Aleve No Aleve Citalopram Citalopram No Citalopram Hydrobromid Hydrobromid Hydrobromi e 20 MG e 20 MG de 20 MG Levothyroxi Levothyroxi No Levothyrox ne Sodium ne Sodium ine Sodium 112 MCG 112 MCG 112 MCG traMADol traMADol No traMADol HCl 50 MG HCl 50 MG HCl 50 MG Simvastatin Simvastatin No Simvastati 40 MG 40 MG n 40 MG amLODIPine amLODIPine No amLODIPine Besylate 10 Besylate 10 Besylate MG MG 10 MG Immunizations Ordered Immunization Filled Immunization Date Status Commen ts Source Name Name influenza, influenza, 2018-11-12 Completed [facility] injectable, injectable, 00:00:00 Practice quadrivalent quadrivalent Vital Signs Vital Name Observation Time Observation Value Comments Source Height 2019-10-14 00:00:00 70 [in_i] [facility] BMI (Body Mass 2019-10-14 00:00:00 24.1 kg/m2 [facility] Index) Practice Body Weight 2019-10-14 00:00:00 168 [lb_av] [facility] Procedures This patient has no known procedures. Encounters Start End Encounter Admission Attending Care Care Encounter Source Date/Time Date/Time Type Type Clinicians Facility Department ID 2021-10-25 2021-10-25 (TEL) [facility] [id number] Co mmon 00:00:00 00:00:00 [facility] 2020-07-15 2020-07-15 Outpatient Miller_S_AH VFP VFP [id number] [facility] 05:16:00 05:16:00 [id number] Family Practic e 2020-05-19 2020-05-19 Outpatient Jayla P VFP [id number] [facility] 08:43:00 08:43:00 _A_AH [id number] Family Practic e 2020-04-26 2020-04-26 Outpatient KayceeRichelle P VFP [phone] [facility] 09:31:00 09:31:00 _A_AH [id number] Family Practic e 2020-04-22 2020-04-22 Bri P [place] - [id number] [facility] brian fritz FISCAL ECONOMIST: Medical - Practi c [email or web address] [email or web address], [address] [phone] , Ph. 2019-12-22 2019-12-22 Outpatient Kaycee-Mbayo VFP VFP [phone] [facility] 01:48:00 01:48:00 _A_AH [id number] Family Practic e 2019-11-17 2019-11-17 Outpatient Kaycee-Mbayo VFP VFP [phone] [facility] 01:01:00 01:01:00 _A_AH [id number] Family Practic e 2019-10-20 2019-10-20 Outpatient Kaycee-Mbayo VFP VFP [phone] [facility] 10:42:00 10:42:00 _A_AH [id number] Family Practic e 2019-10-14 2019-10-14 Bri VFP [place] - [id number] [facility] ill[facility] 00:00:00 [facility]:00:[facility] brian fritz FISCAL ECONOMIST: Eleonora - Praccharlee drake [email or web address] [email or web address], [place] [address], [place] [address] , Ph. 2019-07-14 2019-07-14 Outpatient Kaycee-Mbayo VFP VFP [phone] [facility] 06:29:00 06:29:00 _A_AH [id number] Family Practic e 2019-06-23 2019-06-23 Outpatient Kaycee-Mbayo VFP VFP [phone] [facility] 02:52:00 02:52:00 _A_AH [id number] Family Practic e 2019-05-15 2019-05-15 Bri VFP [place] - [id number] [facility] ill[facility] 00:00:[facility] brian fritz FISCAL ECONOMIST: Eleonora Dangelo Praccharlee drake [email or web address] [email or web address], [place] [address], [place] [address] , Ph. 2019-04-02 2019-04-02 Outpatient Kaycee-Mbayo VFP VFP [phone] [facility] 07:26:00 07:26:00 _A_AH [id number] Family Practic e 2018-11-26 2018-11-26 Out[facility] [id number] Common 15:03:00 15:03:00 [facility] 2018-11-25 2018-11-25 Out[facility] [id number] Common 10:00:00 10:00:00 [facility] 2018-07-24 2018-07-24 Out[facility] [id number] Common 14:00:00 14:00:00 t [facility] Sp[facility] 2018-06-12 2018-06-12 Out[facility] [id number] Common 13:30:00 13:30:00 t [facility] Bone [facility] Sp[facility] t and Joint [facility] - [facility] 2018-05-16 2018-05-16 Out[facility] [id number] Common 10:00:00 10:00:00 t [facility] Bone [facility] Spiri t and Joint [facility] 2018-04-18 2018-04-18 Out[facility] [id number] Common 14:30:00 14:30:00 t [facility] Bone and Spiri t and Joint [facility] - [facility] 2018-04-05 2018-04-05 Out[facility] [id number] Common 10:30:00 10:30:00 t [facility] Bone and Spiri t and Joint [facility] - [facility] 2018-03-29 2018-03-29 Outpatient [facility] [id number] Common 10:00:00 10:00:00 t [facility] Bone and Sp[facility] t and Joint [facility] - [facility] 2018-02-19 2018-02-19 Outpatient [facility] [id number] Common 13:30:00 13:30:00 t [facility] Bone and Spiri t and Joint [facility] - [facility] 2017-10-05 2017-10-05 Outpatient Thor Hogan [id number] Common 08:30:00 08:30:00 t [facility] Bone and Spiri t and Joint [facility] - [facility] 2017-09-28 2017-09-28 Outpatient Thor Hogan [id number] Common 10:45:00 10:45:00 t [facility] Sp[facility] 2017-09-21 2017-09-21 Outpatient Thor Hogan [id number] Common 09:00:00 09:00:00 t [facility] Bone and Sp[facility] t and Joint [facility] 2017-09-12 2017-09-12 Outpatient Thor Hogan [id number] Common 09:00:00 09:00:00 t [facility] Bone and Spiri t and Joint [facility] - [facility] Results This patient has no known results.
[2022-01-15] MEDS ORDERED: METHYLPREDNISOLONE 125 MG INJ ONE (15:10)
[2022-01-15] MEDS ORDERED: LEVALBUTEROL 1.25 MG/3 ML NEB ONE (15:10)
[2022-01-15] MEDS ORDERED: MAGNESIUM SULFATE 1 gm IVPB 1 GM/100 ML BAG IV ONE (15:10)
[2022-01-15 15:51] LABS: Absolute Lymphocytes (CBC) 1.8 K/uL (0.7-4.9); Hematocrit 40.6 % (39.6-49.0); Lymphocytes % 25.2 % (15.3-44.8); MCV 87.4 fL (80-100); MPV 8.7 fL (7.6-11.3); RBC Red Blood Cell Count 4.65 M/uL (4.33-5.43)
[2022-01-15 16:14] LABS: Protime INR 1.03
--- NOTE | 2022-01-15 16:27 | RAD REPORT ---
EXAM DESCRIPTION: RAD - Chest Single View - 01/15/2022 4:18 pm CLINICAL HISTORY: SOB COMPARISON: April 2016 ; due to technical malfunction the 2018 and 2019 exams and associated reports could not be retrieved. TECHNIQUE: AP portable chest image was obtained 01/15/2022 4:18 pm . FINDINGS: No focal mass or consolidation. Diffusely prominent interstitial pattern is present not cl early different from comparison. No acute failure or volume overload. Sternotomy wires are in place. Heart and vasculature are normal. No measurable pleural effusion and n o pneumothorax. No acute bony abnormality seen. No acute aortic findings suspected. IMPRESSION: No acute cardiopulmonary process. Chronic interstitial lung pattern is similar to 2017 exam.
[2022-01-15 16:40] LABS: Potassium 3.6 mmol/L (3.5-5.1); Troponin High Sensitivity 14.3 pg/mL (<58.9)
[2022-01-15 16:46] LABS: SARS-COV-2 RT PCR NEGATIVE (NEGATIVE)
--- NOTE | 2022-01-15 19:16 | RAD REPORT ---
EXAM DESCRIPTION: CT - Chest For Pe Angio - 01/15/2022 6:55 pm CLINICAL HISTORY: sob COMPARISON: Chest Single View dated 01/15/2022 TECHNIQUE: Dynamically enhanced 3 mm thick images of the chest were obtained during administration o f approximately 150mL Isovue 370 IV contrast. Coronal and oblique MIP reconstruction images were gene rated and reviewed. Exam utilizes a protocol to evaluate the pulmonary arterial tree. All CT scans are performed using dose optimization technique as appropriate and may include automated exposure control or mA/KV adjustment according to patient size. FINDINGS: No pulmonary emboli are identified. The aorta as imaged shows no acute or suspicious finding. No pericardial thickening or effusion. No dense consolidation or mass the lung parenchyma. Interstitial thickening is present throughout the lung corbin and there is diffuse bronchial wall thickening. Endobronchial lesions are not identified though there is mucous plugging or bronchial opacification in the subsegmental bronchi in the bilate ral lower lobes. No pleural effusion or pleural thickening. No mediastinal or hilar suspicious masses. No chest wall masses or abnormal axillary lymphadenopathy. Sternotomy wires are in place. Thyroid tissue extends into the upper mediastinum. IMPRESSION: No pulmonary emboli identified. Diffuse bronchial wall thickening and extensive interstitial opacification throughout the lung corbin . Much of this is chronic interstitial lung disease. Patient likely has a superimposed viral type ill ness.
--- NOTE | 2022-01-15 19:33 | EDPHYS ---
Physician Documentation [facility] Name: Morgan Lott Age: 76 yrs Sex: Male : 1945 Arrival Date: 01/15/2022 Time: 14:49 Bed 13 Private MD: ED Physician Jose Rafael Newell HPI: 01/15 14:51 This 76 yrs old Male presents to ER via Ambulatory with complaints of COPD jmm Exacerbation, Congestion. 14:51 The patient has shortness of breath. Onset: The symptoms/episode began/occurred jmm gradually. The patient's shortness of breath has no apparent modifying factors. Associated signs and symptoms: Pertinent negatives: fever. This is a 76 year old male with a history of COPD, CAD that presents to the ED with complaints of shortness of breath, cough, progressively worsening over the past 4 days. Denies fever. Denies chest pain. . Historical: - Allergies: 14:56 No Known Allergies; ld1 - PMHx: 14:56 COPD; Myocardial infarction; Thyroid problem; ld1 - Immunization history:: Adult Immunizations up to date, Client reports receiving the 2nd dose of the Covid vaccine. - Social history:: Smoking status: Patient reports the use of cigarette tobacco products, smokes one pack cigarettes per day. Patient/guardian denies using alcohol. ROS: 19:30 Constitutional: Negative for fever, chills, and weight loss, Cardiovascular: Negative jmm for chest pain, palpitations, and edema. 19:30 Respiratory: Positive for cough, shortness of breath. 19:30 All other systems are negative. Exam: 14:51 Constitutional: This is a well developed, well nourished patient who is awake, alert, jmm and in no acute distress. Head/Face: atraumatic. Eyes: EOMI, no conjunctival erythema appreciated ENT: Moist Mucus Membranes Neck: Trachea midline, Supple Chest/axilla: Normal chest wall appearance and motion. Cardiovascular: Regular rate and rhythm. No edema appreciated 14:51 Abdomen/GI: Non distended Back: Normal ROM Skin: General appearance color normal MS/ Extremity: Moves all extremities, no obvious deformities appreciated, no edema noted to the lower extremities Neuro: Awake and alert Psych: Behavior is normal, Mood is normal, Patient is cooperative and pleasant 14:51 Respiratory: mild respiratory distress is noted, Respirations: labored breathing, that is mild, Breath sounds: wheezing: that is mild, is scattered. Vital Signs: 14:55 BP 156 / 76; Pulse 76; Resp 18; Temp 97.6(TE); Pulse Ox 96% on R/A; Weight 70.31 kg; ld1 Height 5 ft. 9 in. (175.26 cm); Pain 0/10; 15:30 BP 140 / 89; Pulse 61; Resp 18; Pulse Ox 95% on R/A; db 16:30 BP 110 / 87; Pulse 72; Resp 18; Pulse Ox 100% on R/A; db 17:30 BP 147 / 65; Pulse 66; Resp 18; Pulse Ox 95% ; db 19:54 BP 153 / 77; Pulse 69; Resp 22 S; Pulse Ox 94% on R/A; aa9 14:55 Body Mass Index 22.89 (70.31 kg, 175.26 cm) ld1 MDM: 14:51 Patient medically screened. gregorio 19:31 Data reviewed: vital signs, nurses notes. Counseling: I had a detailed discussion with demetria the patient and/or guardian regarding: the historical points, exam findings, and any diagnostic results supporting the discharge/admit diagnosis, lab results, radiology results, the need for outpatient follow up, to return to the emergency department if symptoms worsen or persist or if there are any questions or concerns that arise at home. ED course: Patient states feeling much better after nebs, steroids. Advised to follow up with pcp and otherwise given strict return precautions. Patient understood and agrees with the plan of care. . 01/15 14:58 Order name: Basic Metabolic Panel; Complete Time: 16:44 [facility] 01/15 14:58 Order name: CBC with Diff; Complete Time: 16:07 [facility] 01/15 14:58 Order name: NT PRO-BNP; Complete Time: 16:44 [facility] 01/15 14:58 Order name: PT-INR; Complete Time: 16:40 [facility] 01/15 14:58 Order name: Troponin HS; Complete Time: 16:44 [facility] 01/15 14:58 Order name: COVID-19/FLU A+B; Complete Time: 16:54 [facility] 01/15 14:58 Order name: XRAY Chest (1 view); Complete Time: 16:40 [facility] 01/15 14:58 Order name: EKG; Complete Time: 14:58 [facility] 01/15 14:58 Order name: Cardiac monitoring; Complete Time: 15:41 [facility] 01/15 14:58 Order name: EKG - Nurse/Tech; Complete Time: 15:41 [facility] 01/15 17:16 Order name: CT Chest For PE Angio; Complete Time: 19:19 [facility] 01/15 14:58 Order name: IV Saline Lock; Complete Time: 15:38 [facility] 01/15 14:58 Order name: Labs collected and sent; Complete Time: 15:41 [facility] 01/15 14:58 Order name: O2 Per Protocol; Complete Time: 15:41 [facility] 01/15 14:58 Order name: O2 Sat Monitoring; Complete Time: 15:41 [facility] Administered Medications: 15:37 Drug: SOLU-Medrol (methylPrednisoLONE) 125 mg Route: IVP; Site: right antecubital; db 17:04 Follow up: Response: No adverse reaction db 15:37 Drug: Magnesium Sulfate 1 grams Route: IVPB; Infused Over: 1 hrs; Site: right db antecubital; 16:40 Follow up: Response: No adverse reaction; IV Status: Completed infusion; IV Intake: db 100ml 15:38 Drug: Xopenex (levalbuterol) (3) 1.25 mg Route: Inhalation; db 17:04 Follow up: Response: No adverse reaction db Disposition Summary: 01/15/22 19:32 Discharge Ordered Location: Home [facility] Condition: Stable [facility] Diagnosis - COPD/ Chronic obstructive pulmonary disease with (acute) exacerbation [facility] Followup: [facility] - With: Private Physician - When: 2 - 3 days - Reason: Recheck today's complaints, Continuance of care, Re-evaluation by your physician Discharge Instructions: - Discharge Summary Sheet [facility] - Chronic Obstructive Pulmonary Disease Exacerbation [facility] Forms: - Medication Reconciliation Form [facility] - Thank You Letter [facility] - Antibiotic Education [facility] - Prescription Opioid Use [facility] Prescriptions: - albuterol sulfate 90 mcg/actuation Inhalation HFA aerosol inhaler - inhale 2 puff by INHALATION route every 4 hours; 1 Pump; Refills: 0, Product [facility] Selection Permitted - Prednisone 20 mg Oral Tablet - take 3 tablets by ORAL route once daily for 5 days; 15 tablet; Refills: 0, [facility] Product Selection Permitted - Zithromax Z-Davis 250 mg Oral Tablet - take 1 tablet by ORAL route as directed for 5 days Day 1 - take two (2) tablets jmm one time. Day 2, 3, 4 , 5 take one (1) tablet once daily.; 6 tablet; Refills: 0, Product Selection Permitted - promethazine-DM - take 10 milliliter by ORAL route every 4-6 hours As needed; 200 milliliter; jmm Refills: 0, Product Selection Permitted Signatures: Dispatcher [employer] EDJose Rafael Bach MD MD cha Mickail, Joel, PA PA jmm Dibbern, Lauren, RN RN ld1 Marcela De Luna RN RN db
--- NOTE | 2022-01-15 19:33 | ER ---
Nurse's Notes [facility] Name: Morgan Lott Age: 76 yrs Sex: Male : 1945 Arrival Date: 01/15/2022 Time: 14:49 Bed 13 Private MD: Diagnosis: COPD/ Chronic obstructive pulmonary disease with (acute) exacerbation Presentation: 01/15 14:55 Chief complaint: Patient states: SOB \T\ Congestion X 3-4 days. Coronavirus screen: At ld1 this time, the client does not indicate any symptoms associated with coronavirus-19. Ebola Screen: No symptoms or risks identified at this time. Initial Sepsis Screen: Does the patient meet any 2 criteria? No. Patient's initial sepsis screen is negative. Does the patient have a suspected source of infection? No. Patient's initial sepsis screen is negative. Risk Assessment: Do you want to hurt yourself or someone else? Patient reports no desire to harm self or others. Onset of symptoms was January 15, 2022. 14:55 Method Of Arrival: Ambulatory ld1 14:55 Acuity: GRADY 3 ld1 Triage Assessment: 14:56 General: Appears in no apparent distress. comfortable, Behavior is calm, cooperative, ld1 appropriate for age. Pain: Denies pain. EENT: No signs and/or symptoms were reported regarding the EENT system. Neuro: Level of Consciousness is awake, alert, obeys commands, Oriented to person, place, time, situation. Cardiovascular: Capillary refill < 3 seconds Patient's skin is warm and dry. Respiratory: Airway is patent Respiratory effort is even, unlabored. GI: Abdomen is flat, non-distended. : No signs and/or symptoms were reported regarding the genitourinary system. Derm: No signs and/or symptoms reported regarding the dermatologic system. Musculoskeletal: No signs and/or symptoms reported regarding the musculoskeletal system. Historical: - Allergies: 14:56 No Known Allergies; ld1 - PMHx: 14:56 COPD; Myocardial infarction; Thyroid problem; ld1 - Immunization history:: Adult Immunizations up to date, Client reports receiving the 2nd dose of the Covid vaccine. - Social history:: Smoking status: Patient reports the use of cigarette tobacco products, smokes one pack cigarettes per day. Patient/guardian denies using alcohol. Screenin:35 Abuse screen: Denies threats or abuse. Denies injuries from another. Nutritional db screening: No deficits noted. Tuberculosis screening: No symptoms or risk factors identified. Fall Risk None identified. No fall in past 12 months (0 pts). No secondary diagnosis (0 pts). IV access (20 points). Ambulatory Aid- None/Bed Rest/Nurse Assist (0 pts). Gait- Normal/Bed Rest/Wheelchair (0 pts) Mental Status- Oriented to own ability (0 pts). Total Santana Fall Scale indicates No Risk (0-24 pts). Assessment: 15:30 Reassessment: Patient is alert, oriented x 3, equal unlabored respirations, skin db warm/dry/pink. cough and congestion x 3 days. General: Appears in no apparent distress. comfortable, Behavior is calm, cooperative, appropriate for age. Pain: Denies pain. Neuro: No deficits noted. Level of Consciousness is awake, alert, obeys commands, Oriented to person, place, time, situation, Appropriate for age Speech is normal, Facial symmetry appears normal. Cardiovascular: No deficits noted. Capillary refill < 3 seconds. Respiratory: Airway is patent Respiratory effort is even, unlabored, Respiratory pattern is regular, Breath sounds are coarse the patient has mild shortness of breath. GI: No deficits noted. No signs and/or symptoms were reported involving the gastrointestinal system. : No deficits noted. No signs and/or symptoms were reported regarding the genitourinary system. 16:30 Reassessment: Patient appears in no apparent distress at this time. Patient and/or db family updated on plan of care and expected duration. Pain level reassessed. Patient is alert, oriented x 3, equal unlabored respirations, skin warm/dry/pink. Patient states feeling better. Patient states symptoms have improved. 17:30 Reassessment: Patient appears in no apparent distress at this time. Patient and/or db family updated on plan of care and expected duration. Pain level reassessed. Patient is alert, oriented x 3, equal unlabored respirations, skin warm/dry/pink. states SOB increased when ambulated to the restroom Patient states feeling better. 17:30 Reassessment: Patient appears in no apparent distress at this time. Patient and/or db family updated on plan of care and expected duration. Pain level reassessed. Patient is alert, oriented x 3, equal unlabored respirations, skin warm/dry/pink. Patient states feeling better. 19:55 Reassessment: Patient appears in no apparent distress at this time. Patient is alert, aa9 oriented x 3, equal unlabored respirations, skin warm/dry/pink. pt discharge with family member, ambulated out of ER, denies concerns. Vital Signs: 14:55 BP 156 / 76; Pulse 76; Resp 18; Temp 97.6(TE); Pulse Ox 96% on R/A; Weight 70.31 kg; ld1 Height 5 ft. 9 in. (175.26 cm); Pain 0/10; 15:30 BP 140 / 89; Pulse 61; Resp 18; Pulse Ox 95% on R/A; db 16:30 BP 110 / 87; Pulse 72; Resp 18; Pulse Ox 100% on R/A; db 17:30 BP 147 / 65; Pulse 66; Resp 18; Pulse Ox 95% ; db 19:54 BP 153 / 77; Pulse 69; Resp 22 S; Pulse Ox 94% on R/A; aa9 14:55 Body Mass Index 22.89 (70.31 kg, 175.26 cm) ld1 ED Course: 14:49 Patient arrived in ED. mr 14:51 Toney Grijalva PA is PHCP. [facility] 14:51 Jose Rafael Newell MD is Attending Physician. [facility] 14:55 Cassidy Waggoner, RN is Primary Nurse. ld1 14:56 Triage completed. ld1 14:56 Arm band placed on left wrist. ld1 15:04 Marcela De Luna, RN is Primary Nurse. db 15:30 Inserted saline lock: 20 gauge in right forearm, using aseptic technique. Blood mb9 collected. 15:30 EKG done, by ED staff, reviewed by Toney DANIELSON. mb9 15:42 CBC with Diff Sent. mb9 15:42 Basic Metabolic Panel Sent. mb9 15:42 NT PRO-BNP Sent. mb9 15:42 PT-INR Sent. mb9 15:42 Troponin HS Sent. mb9 15:42 COVID-19/FLU A+B Sent. mb9 16:20 XRAY Chest (1 view) In Process Unspecified. EDMS 17:15 Patient has correct armband on for positive identification. Bed in low position. Call db light in reach. Side rails up X 1. 17:15 Client placed on continuous cardiac and pulse oximetry monitoring. NIBP monitoring db applied. 18:57 CT Chest For PE Angio In Process Unspecified. EDMS 19:27 Primary Nurse role handed off by Marcela De Luna RN 19:55 No provider procedures requiring assistance completed. IV discontinued, intact, aa9 bleeding controlled, No redness/swelling at site. Pressure dressing applied. Administered Medications: 15:37 Drug: SOLU-Medrol (methylPrednisoLONE) 125 mg Route: IVP; Site: right antecubital; db 17:04 Follow up: Response: No adverse reaction db 15:37 Drug: Magnesium Sulfate 1 grams Route: IVPB; Infused Over: 1 hrs; Site: right db antecubital; 16:40 Follow up: Response: No adverse reaction; IV Status: Completed infusion; IV Intake: db 100ml 15:38 Drug: Xopenex (levalbuterol) (3) 1.25 mg Route: Inhalation; db 17:04 Follow up: Response: No adverse reaction db Medication: 19:55 VIS not applicable for this client. aa9 Intake: 16:40 IV: 100ml; Total: 100ml. db Outcome: 19:32 Discharge ordered by . demetria 19:55 Discharged to home ambulatory. aa9 19:55 Condition: stable 19:55 Discharge instructions given to patient, family, Instructed on discharge instructions, follow up and referral plans. medication usage, Demonstrated understanding of instructions, follow-up care, medications, Prescriptions given X 4. 19:56 Patient left the ED. aa9 Signatures: Dispatcher [employer] EDMS Toney Grijalva PA PA jmm Rivera, Mary HamMyrna Lauren RN RN ld1 Pao Boo RN RN aa9 Marcela De Luna, RN RN Carly Condon, RN RN mb9
[2022-01-15 20:10] VITALS: TEMP 97.6
[2022-01-15 20:23] VITALS: BP 153/77; O2SAT 94
--- NOTE | 2022-01-16 13:46 | EKG ---
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
== END 2022-01-15 19:56 | disposition home or self-care (01) ==
LOC: ER 14:46
DX: J44.1 Chronic obstructive pulmonary disease with (acute) exacerbation (principal); Z20.822 Contact with and (suspected) exposure to COVID-19; I25.2 Old myocardial infarction; F17.210 Nicotine dependence, cigarettes, uncomplicated
CPT/HCPCS: 96365; 93005; 85025; 80048; 36415; 85610; 84484; 83880; 0240U; 71275; 71045; 96375; 99284; Q9967; J7614; J3475; J2930